=== PATIENT | female | born 2000 | race Caucasian/White ===

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

== ENCOUNTER 2019-06-09 14:16 | Emergency (ER) | payer OTHER ==
[~2019-06-09] VITALS: Ht 160 cm; Wt 64.8 kg
[~2019-06-09 14:16] MED LIST: MEDROLDOSEPACK PO
[2019-06-09] MEDS ORDERED: NEURONTIN600 MG PO (14:23)
[2019-06-09] MEDS ORDERED: ABILIFY 2 MG2 M1 PO (14:23)
[2019-06-09] MEDS ORDERED: MELATONIN3 MG PO (14:24)
[2019-06-09 15:15] VITALS: BP 122/64
== END 2019-06-09 15:16 | disposition home or self-care (01) ==
LOC: M.ERS 14:16
DX: S93.401A Sprain of unspecified ligament of right ankle, initial encounter (principal); J45.909 Unspecified asthma, uncomplicated; W10.9XXA Fall (on) (from) unspecified stairs and steps, initial encounter; Y93.89 Activity, other specified; Y92.89 Other specified places as the place of occurrence of the external cause; Y99.8 Other external cause status

== ENCOUNTER 2019-10-18 12:07 | Emergency (ER) | payer BC ==
[~2019-10-18] VITALS: Ht 167.6 cm; Wt 68.0 kg
[~2019-10-18 12:07] MED LIST changes: +ABILIFY 2 MG2 M1 PO; +MELATONIN3 MG PO; +NEURONTIN600 MG PO
[2019-10-18] MEDS ORDERED: PROZAC 10 MG CA10 MG PO (12:23)
[2019-10-18 13:41] VITALS: BP 142/90
== END 2019-10-18 13:42 | disposition home or self-care (01) ==
LOC: M.ERS 12:07
DX: S60.221A Contusion of right hand, initial encounter (principal); J45.909 Unspecified asthma, uncomplicated; W22.8XXA Striking against or struck by other objects, initial encounter; Y93.89 Activity, other specified; Y92.89 Other specified places as the place of occurrence of the external cause; Y99.8 Other external cause status